=== PATIENT | male | born 1995 | race Caucasian/White ===

== ENCOUNTER 2025-04-13 18:50 | Emergency (ER) | payer BC, SELFPAY ==
[2025-04-13 18:59] VITALS: BP 135/90
--- NOTE | 2025-04-13 21:12 | ED.GENMED ---
History of Present Illness
General
Chief Complaint: Musculo-Skeletal Complaint
Time Seen by Provider: 04/13/25 20:48
History of Present Illness
History of Present Illness:
29-year-old male presents the emergency department for evaluation of waxing and waning left upper extremity pain for the past several weeks. He denies any obvious provocation or palliation to his symptoms. He openly admits that he feels this gets
worse with anxiety. He openly admits as well that he perseverates on his heart and worries that he can be causing damage by being anxious. He sees a therapist and his psychiatrist, but tried numerous antipsychotics and antidepressants without
benefit. He denies SI
Review of Systems
Review of Systems
Allergies reviewed?: Yes
All Other Systems: ROS reviewed and negative except as documented in HPI and ROS
Phy Exam
Physical Exam
Physical Exam:
GEN: Well appearing, NAD, WDWN
HEENT: Oral mucosa moist, no scleral icterus
Cardiac: Regular rate
Lung: No respiratory distress, no tachypnea
MSK: No gross deformity or injuries. Left arm: Range of motion is normal at the shoulder and elbow. No reproducible tenderness to palpation. Strong radial pulse.
Skin: Good color, no pallor or jaundice, no rashes
Neuro: AO x3, moves all extremities freely
Psych: Calm, cooperative
Course
Orders/Labs/Results
Orders:
Orders
04/13/25 18:52
Electrocardiogram (*1) Urgent
Reason for Study: Chest Pain
EKG- Treatment ONCE
Vital Signs
Initial and Last Documented VS:
Initial Vital Signs
Temp Pulse Resp BP Pulse Ox
98.1 F 99 20 135/90 99
04/13/25 18:59 04/13/25 18:59 04/13/25 18:59 04/13/25 18:59 04/13/25 18:59
Last Documented Vital Signs
Temp Pulse Resp BP Pulse Ox
98.1 F 99 16 135/90 99
04/13/25 18:59 04/13/25 18:59 04/13/25 21:18 04/13/25 18:59 04/13/25 21:13
MDM/Problems Addressed
MDM/Problems Addressed:
Encouraged he follow-up with his primary care physician for follow-up given his severe anxiety that is clearly beginning to cripple his life however no SI warranting crisis evaluation
Comment
Comment:
EKG independently interpreted by me shows a normal sinus rhythm with a sinus arrhythmia at a rate of 88 with an incomplete right bundle branch block, no other changes concerning for ischemia
*Pulse Oximetry
SaO2: 99
Oxygen Mode of Delivery: Room air
Patient hypoxic: no
*Critical Care Note
Total Time (30-74mins, 75-104mins- exclusive of procedures): Not Applicable
ED Attending Note
-
Portions of this chart may have been created with voice recognition software.� Occasional wrong word or��sound alike� substitutions may have occurred due to the inherent limitations of voice recognition software.
Discharge Plan
Departure
Patient Disposition: Home (Routine Discharge)
Date of Disposition: 04/13/25
Time of Disposition: 21:12
Patient with high blood pressure during this ER visit?: No
Discharge Problem:
Anxiety
Instructions: Anxiety in adults - ED (DC)
Interventions
Interventions:
*Risk Screen - Suicide Last Done: 04/13/25 21:18
*General Assessment Last Done: 04/13/25 18:59
*Neglect/Abuse Screening Last Done: 04/13/25 21:18
*ED- Fall Risk Assessment Last Done: 04/13/25 21:18
*ED COVID-19 Vaccine History Last Done: 04/13/25 20:14
*Nursing Disposition Last Done: 04/13/25 21:23
ED-Musculoskeletal Assessment Last Done: 04/13/25 21:16
Discharge Date and Time
Discharge Date/Time: 04/13/25 21:26
Print Language: AFGHAN
== END 2025-04-13 21:26 | disposition home or self-care (01) ==
LOC: EMR 18:50
PROVIDERS: EMERGENCY PHYSICIAN Student in an Organized Health Care Education/Training Program; FAMILY PHYSICIAN Family Medicine
DX: F41.9 Anxiety disorder, unspecified (principal)
CPT/HCPCS: 99283; 93005